=== PATIENT | male | born 1965 | race Caucasian/White ===

== ENCOUNTER 2016-11-21 13:45 | Emergency (ER) | payer MEDICAID ==
[~2016-11-21] VITALS: Ht 177.8 cm; Wt 74.8 kg
[~2016-11-21 13:45] MED LIST: AMOXICILLIN500 MG ORAL; IBUPROFEN600 MG ORAL
[2016-11-21] MEDS ORDERED: NKM (13:52)
--- NOTE | 2016-11-21 14:28 | Emergency Room Report ---
History of Present Illness General Chief Complaint: Gastrointestinal Bleed Source: Patient Present Illness HPI This patient states that he had bright red blood from his rectum after 2 bowel movements this morning. He states that the first bowel movement was earlier this morning. He states he had a normal bowel movement in it at that there was blood of a significant amount. He states that this and also splattered on the wall. He states that a couple hours later he had another bowel movement and also noted blood. He denies trauma to his rectum. He has had some constipation but today had soft bowel movements. He states the actual stool is brown in color. He denies rectal intercourse. He denies pain. He did have a history of hemorrhoids many years ago and did have to get a banding procedure. He denies fever or chills. He denies nausea or vomiting. He denies chest pain or shortness of breath. He denies lightheadedness. He has no other complaints. He states that he has no medical problems. He only takes vitamins and iron supplements. He does use CBT to sleep. He otherwise denies tobacco or illicit drug use. He does drink occasional alcohol. He has no other complaints. Allergies: Coded Allergies: No Known Allergies (Unverified , 11/17/15) Patient History Past Medical History: none Past Surgical History: other - Spinal surgeries Social History: Reports: alcohol use, drug use - CBD, Denies: smoking Reviewed Nursing Documentation: PMH: Agreed, PSxH: Agreed Nursing Documentation-PM Past Medical History: No Stated History Review of Systems All Other Systems: negative except mentioned in HPI Physical Exam Vital Signs Date Time Temp Pulse Resp B/P (MAP) Pulse Ox O2 Delivery O2 Flow Rate FiO2 11/21/16 13:49 97.9 68 16 116/73 98 Room Air Sp02 EP Interpretation: reviewed, normal General Appearance: no apparent distress, alert, GCS 15, non-toxic Head: normocephalic, atraumatic Eyes: bilateral eye normal inspection, bilateral eye PERRL ENT: hearing grossly normal, normal pharynx, no angioedema, normal voice Neck: full range of motion, supple/symm/no masses Respiratory: chest non-tender, lungs clear, normal breath sounds, speaking full sentences Cardiovascular #1: regular rate, rhythm, no edema Gastrointestinal: normal inspection, normal bowel sounds, non tender, soft, no mass, non-distended, no guarding, no rebound Rectal: other - +Brown colored stool. +internal hemorrhoids, No active bleeding. No mass. Non-tender rectal exam. Genitourinary: normal inspection, no CVA tenderness Musculoskeletal: back normal, gait/station normal, normal range of motion, non- tender Neurologic: alert, oriented x3, responsive, motor strength/tone normal, sensory intact, speech normal Psychiatric: judgement/insight normal, memory normal, mood/affect normal, no suicidal/homicidal ideation Skin: normal color, no rash, warm/dry, well hydrated Medical Decision Making Diagnostic Impression: Primary Impression: Bleeding internal hemorrhoids ER Course This patient presents with a red blood per rectum. Rectal exam shows internal hemorrhoids. There is no active bleeding at this time. There is no evidence of fissure or perirectal or perianal abscess. The patient's examination is benign and nontender. The patient's stool is brown and. I have a low suspicion for a GI bleed. The patient's vital signs are normal. The patient laboratory workup is benign. Patient has an appointment with his primary care physician this week. He is instructed to follow up closely with his primary care physician and possibly undergo an evaluation by GI. At this time, I do not suspect an emergency medical condition. The patient given close return precautions and followup instructions. Laboratory Tests Test 11/21/16 14:10 White Blood Count 4.7 K/UL (4.8-10.8) L Red Blood Count 4.35 M/UL (4.70-6.10) L Hemoglobin 14.8 G/DL (14.2-18.0) Hematocrit 43.4 % (42.0-52.0) Mean Corpuscular Volume 100 FL (80-99) H Mean Corpuscular Hemoglobin 34.0 PG (27.0-31.0) H Mean Corpuscular Hemoglobin Concent 34.0 G/DL (32.0-36.0) Red Cell Distribution Width 11.3 % (11.6-14.8) L Platelet Count 211 K/UL (150-450) Mean Platelet Volume 7.6 FL (6.5-10.1) Neutrophils (%) (Auto) 61.5 % (45.0-75.0) Lymphocytes (%) (Auto) 27.7 % (20.0-45.0) Monocytes (%) (Auto) 9.6 % (1.0-10.0) Eosinophils (%) (Auto) 0.2 % (0.0-3.0) Basophils (%) (Auto) 1.0 % (0.0-2.0) Prothrombin Time 10.2 SEC (9.30-11.50) Prothrombin Time INR 1.0 (0.9-1.1) PTT 26 SEC (23-33) Sodium Level 137 mEQ/L (135-145) Potassium Level 4.4 mEQ/L (3.4-4.9) Chloride Level 98 mEQ/L (98-107) Carbon Dioxide Level 31 mEQ/L (20-30) H Anion Gap 8 (5-15) Blood Urea Nitrogen 8 mg/dL (7-23) Creatinine 1.0 mg/dL (0.7-1.2) Estimate Glomerular Filtration Rate > 60 mL/min (>60) Glucose Level 93 mg/dL (74-106) Calcium Level 9.3 mg/dL (8.6-10.2) Total Bilirubin 0.7 mg/dL (0.0-1.2) Aspartate Amino Transferase (AST) 24 U/L (5-40) Alanine Aminotransferase (ALT) 19 U/L (3-41) Alkaline Phosphatase 71 U/L (40-129) Total Protein 6.9 g/dL (6.6-8.7) Albumin 4.4 g/dL (3.5-5.2) Globulin 2.5 g/dL Albumin/Globulin Ratio 1.7 (1.0-2.7) EKG Diagnostic Results Rate: bradycardiac Rhythm: other ST Segments: no acute changes Other Impression S.bradycardia Rhythm Strip Diag. Results EP Interpretation: yes Rate: 50's Rhythm: no PVC's, no ectopy, other Other Impression S.bradycardia. Last Vital Signs Date Time Temp Pulse Resp B/P (MAP) Pulse Ox O2 Delivery O2 Flow Rate FiO2 11/21/16 13:49 97.9 68 16 116/73 98 Room Air Disposition: HOME, SELF-CARE Condition: Stable Referrals: [facility],REFERRING (PCP) Patient Instructions: Hemorrhoids, [id number] DANIEL GRIER D.O. Nov 21, 2016 14:27
[2016-11-21 14:38] LABS: EOSINOPHILS % (AUTO) 0.2 % (0.0-3.0); LYMPHOCYTES % (AUTO) 27.7 % (20.0-45.0); MEAN CORPUSCULAR VOLUME 100 FL (80-99); MEAN PLATELET VOLUME 7.6 FL (6.5-10.1); MONOCYTES % (AUTO) 9.6 % (1.0-10.0); NEUTROPHILS % (AUTO) 61.5 % (45.0-75.0); PLATELET COUNT 211 K/UL (150-450); RED BLOOD COUNT 4.35 M/UL (4.70-6.10); RED CELL DISTRIBUTION WIDTH 11.3 % (11.6-14.8); WHITE BLOOD COUNT 4.7 K/UL (4.8-10.8)
[2016-11-21 14:42] LABS: ALANINE AMINOTRANSFERASE 19 U/L (3-41); ALBUMIN/GLOBULIN RATIO 1.7 (1.0-2.7); ANION GAP 8 (5-15); ASPARTATE AMINO TRANSFERASE 24 U/L (5-40); CALCIUM 9.3 mg/dL (8.6-10.2); CARBON DIOXIDE 31 mEQ/L (20-30); CHLORIDE 98 mEQ/L (98-107); GLOMERULAR FILTRATION RATE > 60 mL/min (>60); HEMOLYSIS 6; POTASSIUM 4.4 mEQ/L (3.4-4.9); SODIUM 137 mEQ/L (135-145); TOTAL PROTEIN 6.9 g/dL (6.6-8.7)
[2016-11-21 14:43] LABS: PROTHROMBIN TIME 10.2 SEC (9.30-11.50)
[2016-11-21] MEDS ORDERED: ANUSOL-HC30 GM RC (14:49)
[2016-11-21 15:30] VITALS: BP 113/90
--- NOTE | 2016-11-22 17:58 | Cardiology Report ---
APPROVED REPORT EKG Measurement Heart [id number] Sinus bradycardia Otherwise normal ECG
== END 2016-11-21 15:30 | disposition home or self-care (01) ==
LOC: EMR 14:03
DX: K64.8 Other hemorrhoids (principal)
CPT/HCPCS: 36415; 80053; 85025; 85610; 85730; 86850; 86900; 86901; 93005; 99284

== ENCOUNTER 2018-11-02 10:38 | Emergency (ER) | payer MEDICAID ==
[~2018-11-02] VITALS: Ht 177.8 cm; Wt 72.6 kg
[~2018-11-02 10:38] MED LIST changes: +ANUSOL-HC30 GM RC; +NKM
[2018-11-02 10:41] VITALS: BP 115/75
[2018-11-02] MEDS ORDERED: XANAX0.5 MG ORAL (10:48)
--- NOTE | 2018-11-02 10:50 | NUR ---
ED Nurse Note: patient walked into ED c/o right upper back, lateral side, rib pain for 2 weeks. patient reports he works out at the gym. pain is not going away for 2 weeks. 8/10 stabbing pain, sometimes radiates down to his right hand. patient is alert awake x4 ambulatory steady gait, breathing unlabored and even.
[2018-11-02] MEDS ORDERED: Ketorolac 60mg Inj IM ONE (11:00)
--- NOTE | 2018-11-02 11:11 | NUR ---
ED Nurse Note: toradol IM injection given on the right deltoid as per patient's request
--- NOTE | 2018-11-02 12:35 | Emergency Room Report ---
History of Present Illness General Chief Complaint: Pain Source: Patient Present Illness HPI This patient states that she weeks ago he was working out at the gym and went a little heavier than he usually does. He notes that since that time he has had soreness and pain in his right upper back radiating to his right shoulder. He states that he is very tender "trigger points." He states that the symptoms have been on going constantly for the past 2 weeks. He states that he did make an appointment with his primary care physician but has not yet seen his primary care physician. Denies weakness. He denies tingling or numbness. He denies headache. He denies chest pain or shortness of breath. He has no other complaints. Allergies: Coded Allergies: No Known Allergies (Unverified , 11/17/15) Patient History Past Medical History: none Past Surgical History: other - cervical surgery Social History: Denies: smoking, alcohol use, drug use Reviewed Nursing Documentation: PMH: Agreed; PSxH: Agreed Nursing Documentation-PMH Past Medical History: No History, Except For Review of Systems All Other Systems: negative except mentioned in HPI Physical Exam Vital Signs Date Time Temp Pulse Resp B/P (MAP) Pulse Ox O2 Delivery O2 Flow Rate FiO2 11/02/18 10:41 98.4 60 18 115/75 99 Room Air Sp02 EP Interpretation: reviewed, normal General Appearance: no apparent distress, alert, GCS 15, non-toxic Head: normocephalic, atraumatic ENT: hearing grossly normal, normal pharynx, no angioedema, normal voice Neck: normal inspection, full range of motion Respiratory: no respiratory distress, no retraction, no accessory muscle use, speaking full sentences Rectal: deferred Musculoskeletal: gait/station normal, normal range of motion, tender - TTP over the R. trapezius m. Neurologic: alert, oriented x3, responsive, motor strength/tone normal, sensory intact, speech normal Psychiatric: judgement/insight normal, memory normal, mood/affect normal, no suicidal/homicidal ideation Skin: no rash, normal color Medical Decision Making Diagnostic Impression: Primary Impression: Trapezius muscle strain Additional Impression: Trapezius muscle spasm ER Course This patient has a clinical presentation consistent with muscle strain. There are no red flags on physical exam or history that would make me concerned for underlying fracture. Therefore, I do not feel that I need to obtain imaging studies. The patient has pain with range of motion and has tenderness to palpation along the muscle. There is no evidence of compartment syndrome. There is no neurologic deficit. The patient was instructed on supportive home measures. No emergency medical condition was identified. The patient was given return precautions and followup instructions. Last Vital Signs Date Time Temp Pulse Resp B/P (MAP) Pulse Ox O2 Delivery O2 Flow Rate FiO2 11/02/18 10:41 98.4 60 18 115/75 (88) 99 Room Air Status: improved Disposition: HOME, SELF-CARE Condition: Improved Referrals: [facility],REFERRING (PCP) Kellie Kumar DO Nov 02, 2018 12:35
[2018-11-02] MEDS ORDERED: LIDODERM700 M1 TOPIC (12:38)
[2018-11-02] MEDS ORDERED: CYCLOBENZAPRINE10 MG ORAL (12:38)
[2018-11-02] MEDS ORDERED: HYDROCODON-ACE1 EA18 PO (12:38)
[2018-11-02] MEDS ORDERED: IBUPROFEN800 MG ORAL (12:38)
[2018-11-02 12:53] VITALS: BP 115/75
--- NOTE | 2018-11-02 12:53 | NUR ---
ER DISCHARGE NOTE: Patient is cleared to be discharged per ERMD DR GRIER, pt is aox4, on room air, with stable vital signs. pt was given dc and prescription instructions, pt was able to verbalize understanding, pt id band removed without complications. pt is able to ambulate with steady gait. pt took all belongings.
== END 2018-11-02 12:53 | disposition home or self-care (01) ==
LOC: EMR 11:11
DX: S29.012A Strain of muscle and tendon of back wall of thorax, initial encounter (principal); M62.830 Muscle spasm of back; X50.0XXA Overexertion from strenuous movement or load, initial encounter; Y92.39 Other specified sports and athletic area as the place of occurrence of the external cause
CPT/HCPCS: 96372; 99283